=== PATIENT | female | born 1970 | race Two or more races ===

== ENCOUNTER 2017-08-31 22:18 | Emergency (ER) | payer MEDICAID ==
[~2017-08-31] VITALS: Ht 172.7 cm; Wt 122.5 kg
[~2017-08-31 22:18] MED LIST: ATOR10TA9 PO; METF500T27 PO; OMEP40CA6 PO; SUCR100P PO; TRAZ50TA18 PO; ZOLP-413 PO
[2017-08-31] MEDS ORDERED: SODIUM CHLORIDE 0.9% 1,000ML IVBOLUS ONE (23:30)
[2017-08-31] MEDS ORDERED: SODIUM CHLORIDE FLUSH 10ML SYR IVF ONE (23:30)
[2017-08-31] MEDS ORDERED: KETOROLAC 30 MG/1 ML IVPush ONE (23:30)
[2017-08-31] MEDS ORDERED: ONDANSETRON 2MG/ML, 2ML IVPush ONE (23:30)
[2017-08-31] MEDS ORDERED: MORPHINE SULFATE 4 MG/ML, 1ML IVPush PRN (23:30)
[2017-08-31] MEDS ORDERED: MORPHINE SULFATE 4 MG/ML, 1ML ONE (23:36)
[2017-08-31] MEDS ORDERED: KETOROLAC 30 MG/1 ML ONE (23:36)
[2017-08-31] MEDS ORDERED: ONDANSETRON 2MG/ML, 2ML ONE (23:37)
[2017-08-31 23:48] LABS: BASOPHILS # (AUTO) 0.07 x10^3/uL (0-0.1); BASOPHILS % (AUTO) 1 % (0-1); EOSINOPHILS # (AUTO) 0.22 x10^3/uL (0-0.4); EOSINOPHILS % (AUTO) 2 % (1-7); LYMPHOCYTES # (AUTO) 3.44 x10^3/uL (1-3.4); LYMPHOCYTES % (AUTO) 29 % (22-44); MD NO; MEAN CORPUSCULAR HEMOGLOBIN 28.5 pg (27.0-34.8); MEAN CORPUSCULAR HGB CONC 33.4 g/dL (32.4-35.8); MEAN CORPUSCULAR VOLUME 85.2 fL (80-100); MONOCYTES # (AUTO) 0.66 x10^3/uL (0.2-0.8); MONOCYTES % (AUTO) 6 % (2-9); NEUTROPHILS # (AUTO) 7.43 x10^3/uL (1.8-6.8); NEUTROPHILS % (AUTO) 63 % (42-75); PLATELET COUNT 292 x10^3/uL (130-400); RED BLOOD COUNT 5.14 x10^6/uL (3.82-5.3); RED CELL DISTRIBUTION WIDTH 15.1 % (9.6-15.2)
[2017-08-31 23:56] LABS: ALANINE AMINOTRANSFERASE 26 U/L (12-78); ALBUMIN 3.4 g/dL (3.4-5.0); ANION GAP 10 mmol/L (5-15); CALCIUM 8.4 mg/dL (8.5-10.1); CHLORIDE 105 mmol/L (98-107); CREATININE 0.88 mg/dL (0.55-1.02)
[2017-09-01 00:01] LABS: ALKALINE PHOSPHATASE 79 U/L (45-117); BILIRUBIN,TOTAL 0.2 mg/dL (0.2-1.0); TOTAL PROTEIN 7.5 g/dL (6.4-8.2); TROPONIN I < 0.015 ng/mL (0.000-0.045)
[2017-09-01] MEDS ORDERED: MORPHINE SULFATE 4 MG/ML, 1ML ONE (03:38)
[2017-09-01 03:48] VITALS: BP 112/70
[2017-09-01 03:49] LABS: TROPONIN I < 0.015 ng/mL (0.000-0.045)
[2017-09-01] MEDS ORDERED: HYDROcodone/APAP 5/325 TABLET PO ONE (04:30)
[2017-09-01] MEDS ORDERED: HYDROcodone/APAP 5/325 TABLET ONE (04:41)
== END 2017-09-01 04:48 | disposition home or self-care (01) ==
LOC: ED 09-01 00:04
DX: R07.2 Precordial pain (principal); E11.9 Type 2 diabetes mellitus without complications; E66.9 Obesity, unspecified; Z87.891 Personal history of nicotine dependence; Z90.49 Acquired absence of other specified parts of digestive tract
CPT/HCPCS: 36415; 71045; 80053; 84484; 85025; 85379; 93005; 96361; 96374; 96375; 99285; J1885; J2405; J7030

== ENCOUNTER 2017-11-07 08:29 | Emergency (ER) | payer MEDICAID ==
[~2017-11-07] VITALS: Ht 172.7 cm; Wt 128.0 kg
[~2017-11-07 08:29] MED LIST changes: +ALBU0.63 NEB; +ATOR-2 PO; +GLIP10TA13 PO; +LORA10TA75 PO
[2017-11-07] MEDS ORDERED: PROMETHAZINE 25 MG/ML, 1ML ONE (09:02)
[2017-11-07] MEDS ORDERED: PROMETHAZINE 25 MG/ML, 1ML IM ONE (09:30)
[2017-11-07 09:49] LABS: BASOPHILS # (AUTO) 0.01 x10^3/uL (0-0.1); BASOPHILS % (AUTO) 0 % (0-1); EOSINOPHILS # (AUTO) 0.18 x10^3/uL (0-0.4); EOSINOPHILS % (AUTO) 2 % (1-7); LYMPHOCYTES # (AUTO) 1.78 x10^3/uL (1-3.4); LYMPHOCYTES % (AUTO) 18 % (22-44); MD NO; MEAN CORPUSCULAR HEMOGLOBIN 28.3 pg (27.0-34.8); MEAN CORPUSCULAR HGB CONC 33.1 g/dL (32.4-35.8); MEAN CORPUSCULAR VOLUME 85.3 fL (80-100); MEAN PLATELET VOLUME 7.9 fL (7.4-10.4); MONOCYTES # (AUTO) 0.23 x10^3/uL (0.2-0.8); MONOCYTES % (AUTO) 2 % (2-9); NEUTROPHILS # (AUTO) 7.98 x10^3/uL (1.8-6.8); NEUTROPHILS % (AUTO) 78 % (42-75); PLATELET COUNT 325 x10^3/uL (130-400); RED BLOOD COUNT 5.24 x10^6/uL (3.82-5.3); RED CELL DISTRIBUTION WIDTH 14.9 % (9.6-15.2)
[2017-11-07 10:01] LABS: ALBUMIN 3.4 g/dL (3.4-5.0); ANION GAP 11 mmol/L (5-15); CALCIUM 9.3 mg/dL (8.5-10.1); CHLORIDE 104 mmol/L (98-107)
[2017-11-07 10:02] LABS: CREATININE 0.71 mg/dL (0.55-1.02)
[2017-11-07 10:45] VITALS: BP 126/72
== END 2017-11-07 10:47 | disposition home or self-care (01) ==
LOC: ED 09:20
DX: J00 Acute nasopharyngitis [common cold] (principal); G44.201 Tension-type headache, unspecified, intractable; E11.65 Type 2 diabetes mellitus with hyperglycemia; R11.2 Nausea with vomiting, unspecified
CPT/HCPCS: 36415; 70450; 71045; 80048; 82040; 85025; 96372; 99285; J2550

== ENCOUNTER 2017-12-23 18:02 | Inpatient (IN) | payer MEDICAID ==
[~2017-12-23] VITALS: Ht 172.7 cm; Wt 123.2 kg
[2017-12-23] MEDS ORDERED: SODIUM CHLORIDE FLUSH 10ML SYR IVF ONE (19:00)
[2017-12-23] MEDS ORDERED: ACETAMINOPHEN 500 MG TABLET PO ONE (19:00)
[2017-12-23] MEDS ORDERED: SODIUM CHLORIDE 0.9% 1,000ML IVBOLUS ONE (19:00)
[2017-12-23] MEDS ORDERED: ALBUTEROL/IPRATROPIUM 2.5MG/0.5MG, 3 ML NPPB ONE (19:00)
[2017-12-23] MEDS ORDERED: ALBUTEROL/IPRATROPIUM 2.5MG/0.5MG, 3 ML ONE (19:06)
[2017-12-23 19:29] LABS: BASOPHILS # (AUTO) 0.04 x10^3/uL (0-0.1); BASOPHILS % (AUTO) 0 % (0-1); EOSINOPHILS % (AUTO) 1 % (1-7); LYMPHOCYTES % (AUTO) 22 % (22-44); MD NO; MEAN CORPUSCULAR HEMOGLOBIN 28.4 pg (27.0-34.8); MEAN CORPUSCULAR HGB CONC 33.3 g/dL (32.4-35.8); MEAN CORPUSCULAR VOLUME 85.2 fL (80-100); MEAN PLATELET VOLUME 7.6 fL (7.4-10.4); MONOCYTES # (AUTO) 0.69 x10^3/uL (0.2-0.8); MONOCYTES % (AUTO) 7 % (2-9); NEUTROPHILS % (AUTO) 70 % (42-75); PLATELET COUNT 300 x10^3/uL (130-400); RED BLOOD COUNT 5.91 x10^6/uL (3.82-5.3); RED CELL DISTRIBUTION WIDTH 14.8 % (9.6-15.2)
[2017-12-23 19:40] LABS: ALBUMIN 3.7 g/dL (3.4-5.0); ANION GAP 13 mmol/L (5-15); CALCIUM 9.4 mg/dL (8.5-10.1); CHLORIDE 100 mmol/L (98-107); CREATININE 0.79 mg/dL (0.55-1.02)
[2017-12-23] MEDS ORDERED: ACETAMINOPHEN 500 MG TABLET ONE (19:40)
[2017-12-23] MEDS ORDERED: ONDANSETRON ODT 4 MG ONE (20:36)
[2017-12-23] MEDS ORDERED: ONDANSETRON ODT 4 MG PO ONE (21:00)
[2017-12-23] MEDS ORDERED: ZOLPIDEM 5MG TABLET PO PRN (22:00)
[2017-12-23] MEDS ORDERED: ONDANSETRON ODT 4 MG PO PRN (22:00)
[2017-12-23] MEDS ORDERED: ENALAPRILAT 1.25 MG/ML, 2ML IVPush PRN (22:00)
[2017-12-23 22:26] VITALS: BP 124/81
[2017-12-23] MEDS: HEPARIN 5,000 UNITS/ML, 1ML SQ SCH (22:45)
[2017-12-23] MEDS: ZOLPIDEM 5MG TABLET PO PRN (22:45)
[2017-12-23] MEDS ORDERED: GLUCAGON 1 MG IM PRN (23:00)
[2017-12-23] MEDS ORDERED: DEXTROSE 50%, 50ML SYRINGE IVPush PRN (23:00)
[2017-12-23] MEDS ORDERED: DEXTROSE 4 GM TAB.CHEW PO PRN (23:00)
[2017-12-23] MEDS ORDERED: INSULIN GLARGINE 100 UNITS/ML, PEN SQ-INSULIN SCH (23:00)
[2017-12-23] MEDS: ALBUTEROL/IPRATROPIUM 2.5MG/0.5MG, 3 ML NPPB SCH (23:25)
[2017-12-24] MEDS: INSULIN LISPRO 100 UNITS/ML, PEN SQ-INSULIN SCH ×5 (00:05→21:05)
[2017-12-24] MEDS: ALBUTEROL/IPRATROPIUM 2.5MG/0.5MG, 3 ML NPPB SCH ×6 (02:08→23:00)
[2017-12-24 02:14] VITALS: BP 130/77
[2017-12-24 05:03] LABS: BASOPHILS # (AUTO) 0.01 x10^3/uL (0-0.1); BASOPHILS % (AUTO) 0 % (0-1); EOSINOPHILS % (AUTO) 0 % (1-7); LYMPHOCYTES # (AUTO) 0.92 x10^3/uL (1-3.4); LYMPHOCYTES % (AUTO) 10 % (22-44); MD NO; MEAN CORPUSCULAR HEMOGLOBIN 28.4 pg (27.0-34.8); MEAN CORPUSCULAR HGB CONC 33.1 g/dL (32.4-35.8); MEAN CORPUSCULAR VOLUME 85.8 fL (80-100); MEAN PLATELET VOLUME 7.8 fL (7.4-10.4); MONOCYTES # (AUTO) 0.27 x10^3/uL (0.2-0.8); MONOCYTES % (AUTO) 3 % (2-9); NEUTROPHILS # (AUTO) 7.62 x10^3/uL (1.8-6.8); NEUTROPHILS % (AUTO) 86 % (42-75); PLATELET COUNT 315 x10^3/uL (130-400); RED CELL DISTRIBUTION WIDTH 14.8 % (9.6-15.2)
[2017-12-24] MEDS ORDERED: INSULIN GLARGINE 100 UNITS/ML, PEN SQ-INSULIN SCH ×2 (06:30→21:00)
[2017-12-24 06:45] VITALS: BP 127/82
[2017-12-24] MEDS: SODIUM CHLORIDE FLUSH 10ML SYR IVF SCH ×2 (08:57→21:04)
[2017-12-24] MEDS: LORATADINE 10 MG TABLET PO SCH (08:57)
[2017-12-24] MEDS: HEPARIN 5,000 UNITS/ML, 1ML SQ SCH ×2 (08:57→17:37)
[2017-12-24] MEDS ORDERED: AZITHROMYCIN 500 MG TABLET PO ONE (09:00)
[2017-12-24] MEDS: OMEPRAZOLE 20 MG CAPSULE.DR PO SCH (09:03)
[2017-12-24] MEDS ORDERED: GUAIFENESIN 100 MG/5 ML, 5ML UDC ONE (10:30)
[2017-12-24] MEDS: GUAIFENESIN 100 MG/5 ML, 5ML UDC PO PRN ×2 (10:33→15:44)
[2017-12-24 13:09] VITALS: BP 114/76
[2017-12-24 19:41] VITALS: BP 123/81
[2017-12-24] MEDS ORDERED: ATORVASTATIN 80 MG TABLET PO SCH (21:00)
[2017-12-24] MEDS ORDERED: ACETAMINOPHEN 325 MG TABLET PO PRN (21:00)
[2017-12-24] MEDS: ATORVASTATIN 10 MG TABLET PO SCH (21:03)
[2017-12-24] MEDS: ZOLPIDEM 5MG TABLET PO PRN (21:57)
[2017-12-24] MEDS ORDERED: INSULIN LISPRO 100 UNITS/ML, PEN SQ-INSULIN SCH ×2 (23:13)
[2017-12-25] MEDS: HEPARIN 5,000 UNITS/ML, 1ML SQ SCH ×3 (01:38→16:44)
[2017-12-25 02:09] VITALS: BP 107/71
[2017-12-25] MEDS ORDERED: INSULIN LISPRO 100 UNITS/ML, PEN SQ-INSULIN SCH (07:00)
[2017-12-25 07:47] VITALS: BP 100/71
[2017-12-25] MEDS: AZITHROMYCIN 250 MG TABLET PO SCH (08:03)
[2017-12-25] MEDS: LORATADINE 10 MG TABLET PO SCH (08:04)
[2017-12-25] MEDS: SODIUM CHLORIDE FLUSH 10ML SYR IVF SCH ×2 (08:05→20:54)
[2017-12-25] MEDS: OMEPRAZOLE 20 MG CAPSULE.DR PO SCH (08:10)
[2017-12-25] MEDS: ALBUTEROL/IPRATROPIUM 2.5MG/0.5MG, 3 ML NPPB SCH ×3 (10:15→20:59)
[2017-12-25] MEDS: GUAIFENESIN 100 MG/5 ML, 5ML UDC PO PRN (11:37)
[2017-12-25 12:30] VITALS: BP 139/82
[2017-12-25] MEDS: INSULIN LISPRO 100 UNITS/ML, PEN SQ-INSULIN SCH ×2 (15:21→20:53)
[2017-12-25] MEDS ORDERED: INSULIN LISPRO 100 UNITS/ML, PEN SQ-INSULIN ONE (17:00)
[2017-12-25] MEDS ORDERED: BENZONATATE 100 MG CAPSULE PO PRN (20:00)
[2017-12-25] MEDS: ATORVASTATIN 10 MG TABLET PO SCH (20:53)
[2017-12-25] MEDS ORDERED: INSULIN GLARGINE 100 UNITS/ML, PEN SQ-INSULIN SCH (21:00)
[2017-12-25 21:02] VITALS: BP 124/84
[2017-12-25] MEDS: ZOLPIDEM 5MG TABLET PO PRN (23:19)
[2017-12-25] MEDS: DEXTROMETHORPHAN 30 MG/5 ML ORAL SOL PO PRN (23:19)
[2017-12-26] MEDS: HEPARIN 5,000 UNITS/ML, 1ML SQ SCH ×3 (01:27→17:00)
[2017-12-26] MEDS: INSULIN LISPRO 100 UNITS/ML, PEN SQ-INSULIN SCH ×3 (01:33→14:33)
[2017-12-26 02:51] VITALS: BP 104/73
[2017-12-26 06:56] VITALS: BP 112/80
[2017-12-26] MEDS: SODIUM CHLORIDE FLUSH 10ML SYR IVF SCH (08:51)
[2017-12-26] MEDS: AZITHROMYCIN 250 MG TABLET PO SCH (08:53)
[2017-12-26] MEDS: LORATADINE 10 MG TABLET PO SCH (08:54)
[2017-12-26] MEDS ORDERED: OMEPRAZOLE 20 MG CAPSULE.DR PO SCH (09:00)
[2017-12-26] MEDS: DEXTROMETHORPHAN 30 MG/5 ML ORAL SOL PO PRN (10:00)
[2017-12-26] MEDS: ALBUTEROL/IPRATROPIUM 2.5MG/0.5MG, 3 ML NPPB SCH ×2 (12:13→15:28)
[2017-12-26] MEDS ORDERED: PRED20TA PO (13:57)
[2017-12-26] MEDS ORDERED: BENZ-17 PO (13:57)
[2017-12-26] MEDS ORDERED: INSU100I13 SQ-INSULIN (13:57)
[2017-12-26] MEDS ORDERED: INSU100I11 SQ-INSULIN (13:57)
[2017-12-26] MEDS ORDERED: AZIT250T89 PO (13:57)
[2017-12-26 14:26] VITALS: BP 124/78
[2017-12-26] MEDS ORDERED: INSULIN LISPRO 100 UNITS/ML, PEN SQ-INSULIN ONE (16:00)
== END 2017-12-26 18:30 | disposition home or self-care (01) | DRG 189 ==
LOC: ED 18:35 → EDIP 21:28 → 4WST 22:32
PROVIDERS: ADMIT Family Medicine; ATTEND Family Medicine
DX: J96.01 Acute respiratory failure with hypoxia (principal); E11.65 Type 2 diabetes mellitus with hyperglycemia; Z68.41 Body mass index [BMI] 40.0-44.9, adult; E66.9 Obesity, unspecified; F12.90 Cannabis use, unspecified, uncomplicated; G47.00 Insomnia, unspecified; G47.33 Obstructive sleep apnea (adult) (pediatric); I10 Essential (primary) hypertension; J45.909 Unspecified asthma, uncomplicated; K21.9 Gastro-esophageal reflux disease without esophagitis; M54.9 Dorsalgia, unspecified; G57.50 Tarsal tunnel syndrome, unspecified lower limb; D72.829 Elevated white blood cell count, unspecified; E78.5 Hyperlipidemia, unspecified; R91.1 Solitary pulmonary nodule; Z79.899 Other long term (current) drug therapy; Z87.891 Personal history of nicotine dependence; Z90.710 Acquired absence of both cervix and uterus; Z91.19 Patient's noncompliance with other medical treatment and regimen; Z90.49 Acquired absence of other specified parts of digestive tract; Z90.721 Acquired absence of ovaries, unilateral
CPT/HCPCS: 36415; 71045; 71046; 80048; 82040; 82103; 82947; 82962; 83605; 85025; 93005; 94640; J1644; J7620; Q0162; J1815; J7030; J7512

== ENCOUNTER 2018-08-14 | Emergency (ER) | payer MEDICAID ==
[~2018-08-14] VITALS: Ht 172.7 cm; Wt 111.0 kg
[~2018-08-14] MED LIST changes: +AZIT250T89 PO; +BENZ-17 PO; +INSU100I11 SQ-INSULIN; +INSU100I13 SQ-INSULIN; +PRED20TA PO; -TRAZ50TA18 PO; +TRAZ50TA66 PO
--- NOTE | 2018-08-14 01:17 | NUR ---
LINH RN: PT REMAINS IN LOBBY AWAITING ROOM ASSIGNMENT. PER ERP, C-SPINE PRECAUTIONS CLEARED. C-COLLAR REMOVED AT THIS TIME.
[2018-08-14 01:26] LABS: BASOPHILS # (AUTO) 0.07 x10^3/uL (0-0.1); BASOPHILS % (AUTO) 1 % (0-1); EOSINOPHILS # (AUTO) 0.34 x10^3/uL (0-0.4); EOSINOPHILS % (AUTO) 3 % (1-7); LYMPHOCYTES % (AUTO) 23 % (22-44); MD NO; MEAN CORPUSCULAR HEMOGLOBIN 28.9 pg (27.0-34.8); MEAN CORPUSCULAR HGB CONC 33.1 g/dL (32.4-35.8); MEAN CORPUSCULAR VOLUME 87.4 fL (80-100); MEAN PLATELET VOLUME 7.8 fL (7.4-10.4); MONOCYTES # (AUTO) 0.63 x10^3/uL (0.2-0.8); MONOCYTES % (AUTO) 6 % (2-9); NEUTROPHILS # (AUTO) 7.33 x10^3/uL (1.8-6.8); NEUTROPHILS % (AUTO) 67 % (42-75); PLATELET COUNT 328 x10^3/uL (130-400); RED BLOOD COUNT 5.41 x10^6/uL (3.82-5.3); RED CELL DISTRIBUTION WIDTH 15.2 % (9.6-15.2)
[2018-08-14 01:34] LABS: ANION GAP 7 mmol/L (5-15); CALCIUM 8.6 mg/dL (8.5-10.1); CHLORIDE 107 mmol/L (98-107); CREATININE 0.73 mg/dL (0.55-1.02)
--- NOTE | 2018-08-14 01:46 | NUR ---
PT TO RM FROM [facility]. ERP AT BEDSIDE TO LIBBY. PT STATES SHE HAD A SYNCOPAL EPISODE TONIGHT THAT LASTED PER 3-5 MINUTES PER DAUGHTER. PT A&O X4 WITH NO ACUTE NEURO CHANGES NOTED AT THIS TIME. PT C/O DIZZY PRIOR TO EPISODE. PT ALSO PRESENTS WITH COUGH X3 DAYS.
[2018-08-14 01:54] VITALS: BP 129/77
[2018-08-14] MEDS ORDERED: BENZONATATE 100 MG CAPSULE ONE ×2 (02:02→02:04)
[2018-08-14] MEDS ORDERED: ONDANSETRON ODT 4 MG ONE (02:02)
--- NOTE | 2018-08-14 02:08 | NUR ---
Pt medicated per OCT for N/V and cough. 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 Pt had been drinking soda upon RN arrival into room with no s/s of vomiting. Pt continues to c/o dizziness. ERP aware. Call light in reach.
[2018-08-14] MEDS ORDERED: BENZONATATE 100 MG CAPSULE PO ONE (02:30)
[2018-08-14] MEDS ORDERED: ONDANSETRON ODT 4 MG PO ONE (02:30)
--- NOTE | 2018-08-14 02:30 | NUR ---
ERP at bedside to recheck.
== END 2018-08-14 02:57 | disposition home or self-care (01) ==
LOC: ED 02:47
DX: R55 Syncope and collapse (principal); R05 Cough; M54.2 Cervicalgia; R11.0 Nausea; E11.9 Type 2 diabetes mellitus without complications; J45.909 Unspecified asthma, uncomplicated; Z90.89 Acquired absence of other organs; Z90.710 Acquired absence of both cervix and uterus
CPT/HCPCS: 36415; 70450; 72125; 80048; 82962; 84703; 85025; 93005; 99284; Q0162

== ENCOUNTER 2018-08-20 21:42 | Inpatient (IN) | payer MEDICAID ==
[~2018-08-20] VITALS: Ht 162.6 cm; Wt 117.2 kg
[2018-08-20] MEDS ORDERED: SODIUM CHLORIDE FLUSH 10ML SYR IVF ONE (22:00)
[2018-08-20] MEDS ORDERED: ALBUTEROL/IPRATROPIUM 2.5MG/0.5MG, 3 ML NPPB SCH (22:00)
[2018-08-20] MEDS ORDERED: methylPREDNISolone SOD SUCC 125 MG/2 ML IVP ONE (22:00)
--- NOTE | 2018-08-20 22:00 | NUR ---
TP RN: RT PAGED
[2018-08-20 22:10] LABS: BASOPHILS # (AUTO) 0.08 x10^3/uL (0-0.1); BASOPHILS % (AUTO) 1 % (0-1); EOSINOPHILS # (AUTO) 0.29 x10^3/uL (0-0.4); EOSINOPHILS % (AUTO) 3 % (1-7); LYMPHOCYTES # (AUTO) 3.21 x10^3/uL (1-3.4); LYMPHOCYTES % (AUTO) 28 % (22-44); MD NO; MEAN CORPUSCULAR HGB CONC 33.2 g/dL (32.4-35.8); MEAN CORPUSCULAR VOLUME 87.3 fL (80-100); MEAN PLATELET VOLUME 7.8 fL (7.4-10.4); MONOCYTES # (AUTO) 0.58 x10^3/uL (0.2-0.8); MONOCYTES % (AUTO) 5 % (2-9); NEUTROPHILS # (AUTO) 7.42 x10^3/uL (1.8-6.8); NEUTROPHILS % (AUTO) 64 % (42-75); PLATELET COUNT 353 x10^3/uL (130-400); RED BLOOD COUNT 5.51 x10^6/uL (3.82-5.3); RED CELL DISTRIBUTION WIDTH 15.3 % (9.6-15.2)
[2018-08-20] MEDS ORDERED: ALBUTEROL/IPRATROPIUM 2.5MG/0.5MG, 3 ML ONE ×2 (22:12→22:49)
--- NOTE | 2018-08-20 22:13 | NUR ---
PT ARRIVES TO ED VIA EMS WITH C/O CHEST PAIN, SOB AND SEVERE COUGH. 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 PT REPORTS THAT THE CHEST PAIN STARTED IN EPIGASTRIC AREA WITH NO RADIATION. PT ON ARRIVAL IS FOUND TO BE HYPOXIC WITH WHEEZING LUNG SOUND THROUGHOUT LUNGS. PT IS ABLE TO SPEAK IN FULL SENTANCES BUT IS EASILY WINDED BY THAT. PT HAS LOOSE NON PRODUCTIVE COUGH. PT IS NOT DIAPHROATIC AND REPORTS NO N/V/D AT THIS TIME. PT DOES REPORT HAVING A COLD FOR ABOUT TWO WEEKS. PTS RESPIRATIONS ARE EQUAL AND RAPIN WITH NO TRACAHEAL TUGGING. PT CONNECTED TO ALL MONITORS AND PIV PLACED. PT HAS CALL LIGHT IN REACH AND FALL PREVENTION TEACHING REVIEWED WELL. LUIS TO BEDSIDE FOR IMMEDIATE EVAL. AWAITING FURTHER ORDERS.
--- NOTE | 2018-08-20 22:14 | NUR ---
RT TO BEDSIDE
[2018-08-20] MEDS ORDERED: methylPREDNISolone SOD SUCC 125 MG/2 ML ONE (22:19)
[2018-08-20 22:20] LABS: ALANINE AMINOTRANSFERASE 25 U/L (12-78); ALBUMIN 3.7 g/dL (3.4-5.0); ANION GAP 7 mmol/L (5-15); CALCIUM 8.8 mg/dL (8.5-10.1); CHLORIDE 107 mmol/L (98-107); CREATININE 0.66 mg/dL (0.55-1.02)
[2018-08-20 22:25] LABS: ALKALINE PHOSPHATASE 79 U/L (45-117); BILIRUBIN,TOTAL 0.2 mg/dL (0.2-1.0); TOTAL PROTEIN 7.9 g/dL (6.4-8.2); TROPONIN I < 0.015 ng/mL (0.000-0.045)
[2018-08-20] MEDS ORDERED: PLEASE ENTER HEIGHT AND WEIGHT MC SCH (22:30)
--- NOTE | 2018-08-20 23:08 | NUR ---
REPORT TO IVAN MONTEJO
[2018-08-20 23:30] VITALS: BP 124/79
[2018-08-20] MEDS ORDERED: PROMETHAZINE 25 MG/ML, 1ML IM PRN (23:30)
[2018-08-20] MEDS ORDERED: ACETAMINOPHEN 325 MG TABLET PO PRN (23:30)
[2018-08-20] MEDS ORDERED: ONDANSETRON ODT 4 MG PO PRN (23:30)
[2018-08-20] MEDS ORDERED: LABETALOL 5MG/ML, 20ML IVPush PRN (23:30)
[2018-08-20] MEDS ORDERED: ONDANSETRON 2MG/ML, 2ML IVPush PRN (23:30)
[2018-08-20] MEDS ORDERED: LACTATED RINGERS 1,000 ML IV SCH (23:30)
[2018-08-21] MEDS ORDERED: ATORVASTATIN 20 MG TABLET PO SCH
[2018-08-21] MEDS ORDERED: DEXTROSE 4 GM TAB.CHEW PO PRN
[2018-08-21] MEDS ORDERED: DEXTROSE 50%, 50ML SYRINGE IVPush PRN
[2018-08-21] MEDS ORDERED: GLUCAGON 1 MG IM PRN
[2018-08-21 00:16] LABS: CHOL/HDL RATIO 3.4; LDL/HDL RATIO 2.1 (0.5-3.0)
[2018-08-21] MEDS: ENOXAPARIN 40 MG/0.4 ML SQ SCH ×2 (00:42→23:59)
[2018-08-21] MEDS: GUAIFENESIN/DM 200-20MG, 10ML UDC PO PRN ×2 (00:42→22:34)
[2018-08-21] MEDS: IBUPROFEN 600 MG TABLET PO PRN ×2 (00:43→16:03)
[2018-08-21] MEDS: NICOTINE 14MG/24 HR PATCH.TD24 TD SCH ×2 (00:43→23:59)
[2018-08-21] MEDS: INSULIN LISPRO 100 UNITS/ML, PEN SQ-INSULIN SCH ×5 (00:49→20:17)
[2018-08-21] MEDS ORDERED: TRAZODONE 150MG TABLET ONE (00:56)
[2018-08-21] MEDS ORDERED: TRAZODONE 150MG TABLET PO PRN (01:00)
[2018-08-21] MEDS ORDERED: ALBUTEROL SULFATE 2.5 MG/3 ML NPPB PRN (01:00)
[2018-08-21] MEDS ORDERED: ALBUTEROL/IPRATROPIUM 2.5MG/0.5MG, 3 ML NPPB SCH (03:00)
[2018-08-21 03:10] VITALS: BP 112/66
[2018-08-21] MEDS ORDERED: TRAZODONE 50MG TABLET PO PRN (05:00)
[2018-08-21 05:45] LABS: BASOPHILS # (AUTO) 0.02 x10^3/uL (0-0.1); BASOPHILS % (AUTO) 0 % (0-1); EOSINOPHILS # (AUTO) 0.01 x10^3/uL (0-0.4); EOSINOPHILS % (AUTO) 0 % (1-7); LYMPHOCYTES # (AUTO) 0.96 x10^3/uL (1-3.4); LYMPHOCYTES % (AUTO) 8 % (22-44); MD NO; MEAN CORPUSCULAR HEMOGLOBIN 29.1 pg (27.0-34.8); MEAN CORPUSCULAR HGB CONC 33.2 g/dL (32.4-35.8); MEAN CORPUSCULAR VOLUME 87.6 fL (80-100); MONOCYTES # (AUTO) 0.06 x10^3/uL (0.2-0.8); MONOCYTES % (AUTO) 1 % (2-9); NEUTROPHILS # (AUTO) 10.44 x10^3/uL (1.8-6.8); NEUTROPHILS % (AUTO) 91 % (42-75); PLATELET COUNT 306 x10^3/uL (130-400); RED CELL DISTRIBUTION WIDTH 15.1 % (9.6-15.2)
[2018-08-21 05:57] LABS: ALBUMIN 3.6 g/dL (3.4-5.0); ANION GAP 6 mmol/L (5-15); CALCIUM 8.8 mg/dL (8.5-10.1); CHLORIDE 106 mmol/L (98-107)
[2018-08-21 06:01] LABS: ALANINE AMINOTRANSFERASE 25 U/L (12-78); ALKALINE PHOSPHATASE 81 U/L (45-117); BILIRUBIN,TOTAL 0.3 mg/dL (0.2-1.0); CREATININE 0.89 mg/dL (0.55-1.02); TOTAL PROTEIN 7.7 g/dL (6.4-8.2)
[2018-08-21 06:05] LABS: TROPONIN I < 0.015 ng/mL (0.000-0.045)
[2018-08-21 06:06] LABS: CHOL/HDL RATIO 3.2; LDL/HDL RATIO 1.8 (0.5-3.0)
[2018-08-21 06:09] LABS: HEMOGLOBIN A1C 7.6 % (4.2-6.3)
[2018-08-21] MEDS: ALBUTEROL SULFATE 2.5 MG/3 ML NPPB SCH ×4 (07:00→20:00)
[2018-08-21 08:32] VITALS: BP 115/75
[2018-08-21] MEDS: SENNA/DOCUSATE TABLET PO SCH (09:00)
[2018-08-21] MEDS: LOSARTAN 25MG TABLET PO SCH (09:24)
[2018-08-21] MEDS: BENZONATATE 100 MG CAPSULE PO SCH ×3 (09:24→20:16)
[2018-08-21] MEDS: SODIUM CHLORIDE FLUSH 10ML SYR IVF SCH ×2 (09:25→20:17)
[2018-08-21 14:44] VITALS: BP 119/78
[2018-08-21 15:36] VITALS: BP 106/66
[2018-08-21] MEDS: OMEPRAZOLE 20 MG CAPSULE.DR PO SCH (17:54)
[2018-08-21 20:31] VITALS: BP 113/73
[2018-08-21] MEDS ORDERED: ATORVASTATIN 40 MG TABLET PO SCH (21:00)
[2018-08-22 01:11] VITALS: BP 103/66
[2018-08-22] MEDS ORDERED: OMEPRAZOLE 20 MG CAPSULE.DR PO SCH (06:00)
[2018-08-22 06:27] LABS: BASOPHILS # (AUTO) 0.18 x10^3/uL (0-0.1); BASOPHILS % (AUTO) 1 % (0-1); EOSINOPHILS % (AUTO) 1 % (1-7); LYMPHOCYTES # (AUTO) 3.56 x10^3/uL (1-3.4); LYMPHOCYTES % (AUTO) 25 % (22-44); MD NO; MEAN CORPUSCULAR HEMOGLOBIN 29.2 pg (27.0-34.8); MEAN CORPUSCULAR HGB CONC 33.2 g/dL (32.4-35.8); MEAN CORPUSCULAR VOLUME 87.8 fL (80-100); MEAN PLATELET VOLUME 8.3 fL (7.4-10.4); MONOCYTES # (AUTO) 0.78 x10^3/uL (0.2-0.8); MONOCYTES % (AUTO) 6 % (2-9); NEUTROPHILS % (AUTO) 67 % (42-75); PLATELET COUNT 274 x10^3/uL (130-400)
[2018-08-22] MEDS: ALBUTEROL SULFATE 2.5 MG/3 ML NPPB SCH ×3 (07:00→20:00)
[2018-08-22 07:46] VITALS: BP 106/69
[2018-08-22] MEDS: INSULIN LISPRO 100 UNITS/ML, PEN SQ-INSULIN SCH ×3 (08:48→15:34)
[2018-08-22] MEDS: SODIUM CHLORIDE FLUSH 10ML SYR IVF SCH (09:00)
[2018-08-22] MEDS: SENNA/DOCUSATE TABLET PO SCH (09:00)
[2018-08-22] MEDS ORDERED: REGADENOSON 0.4 MG/5 ML SYRINGE ONE (09:27)
[2018-08-22] MEDS: LOSARTAN 25MG TABLET PO SCH (11:02)
[2018-08-22] MEDS: BENZONATATE 100 MG CAPSULE PO SCH ×2 (11:02→15:34)
[2018-08-22 13:03] VITALS: BP 114/78
[2018-08-22] MEDS: OMEPRAZOLE 20 MG CAPSULE.DR PO SCH (13:39)
[2018-08-22 19:43] VITALS: BP 107/70
== END 2018-08-22 20:19 | disposition home or self-care (01) | DRG 69 ==
LOC: ED 21:49 → EDIP 23:21 → 4EST 08-21 00:29
PROVIDERS: ADMIT Family Medicine; ATTEND Family Medicine
DX: G45.9 Transient cerebral ischemic attack, unspecified (principal); J96.01 Acute respiratory failure with hypoxia; J45.42 Moderate persistent asthma with status asthmaticus; F19.20 Other psychoactive substance dependence, uncomplicated; R47.01 Aphasia; E11.9 Type 2 diabetes mellitus without complications; F17.210 Nicotine dependence, cigarettes, uncomplicated; G47.33 Obstructive sleep apnea (adult) (pediatric); I10 Essential (primary) hypertension; I25.10 Atherosclerotic heart disease of native coronary artery without angina pectoris; Z88.6 Allergy status to analgesic agent; Z90.710 Acquired absence of both cervix and uterus; Z98.51 Tubal ligation status; Z90.49 Acquired absence of other specified parts of digestive tract
CPT/HCPCS: 36415; 99291; J7613; J7620; 70450; 71045; 71046; 78452; 80053; 80061; 82962; 83036; 83880; 84484; 85025; 85379; 93005; 93017; 93306; 93880; 94640; G0378; J1650; J2785; Q0162; A9502; C9898; J1815; J2930; J7120; J7512

== ENCOUNTER 2018-10-17 14:24 | Emergency (ER) | payer MEDICAID ==
[~2018-10-17] VITALS: Ht 172.7 cm; Wt 119.7 kg
[~2018-10-17 14:24] MED LIST changes: +EMPA1TAB9 PO; +LOSARTAN PO; +MULT-658 PO
[2018-10-17] MEDS ORDERED: SODIUM CHLORIDE FLUSH 10ML SYR IVF ONE (14:30)
--- NOTE | 2018-10-17 14:43 | NUR ---
pt administered 6 mg of adenosine at 1436. positive rhythm change. 300 of ns admin prior to arrival with additional 600 admin here.
[2018-10-17 14:48] LABS: BASOPHILS # (AUTO) 0.07 x10^3/uL (0-0.1); BASOPHILS % (AUTO) 1 % (0-1); EOSINOPHILS # (AUTO) 0.21 x10^3/uL (0-0.4); EOSINOPHILS % (AUTO) 1 % (1-7); LYMPHOCYTES % (AUTO) 25 % (22-44); MD NO; MEAN CORPUSCULAR HEMOGLOBIN 28.7 pg (27.0-34.8); MEAN CORPUSCULAR VOLUME 86.8 fL (80-100); MEAN PLATELET VOLUME 8.3 fL (7.4-10.4); MONOCYTES # (AUTO) 0.71 x10^3/uL (0.2-0.8); MONOCYTES % (AUTO) 5 % (2-9); NEUTROPHILS # (AUTO) 10.13 x10^3/uL (1.8-6.8); NEUTROPHILS % (AUTO) 68 % (42-75); PLATELET COUNT 419 x10^3/uL (130-400); RED BLOOD COUNT 5.78 x10^6/uL (3.82-5.3); RED CELL DISTRIBUTION WIDTH 15.1 % (9.6-15.2)
[2018-10-17 15:12] LABS: ANION GAP 11 mmol/L (5-15); CALCIUM 9.3 mg/dL (8.5-10.1); CHLORIDE 105 mmol/L (98-107)
[2018-10-17 15:19] LABS: ALANINE AMINOTRANSFERASE 30 U/L (12-78); ALKALINE PHOSPHATASE 86 U/L (45-117); BILIRUBIN,TOTAL 0.4 mg/dL (0.2-1.0); CREATININE 0.85 mg/dL (0.55-1.02); T4 (THYROXINE) 12.5 mcg/dL (4.8-13.9); TOTAL PROTEIN 8.5 g/dL (6.4-8.2); TROPONIN I < 0.015 ng/mL (0.000-0.045)
[2018-10-17 15:54] VITALS: BP 101/66
[2018-10-17] MEDS ORDERED: ADENOSINE 6 MG/2 ML IVPush ONE (16:00)
== END 2018-10-17 16:33 | disposition home or self-care (01) ==
LOC: ED 16:10
DX: I47.1 Supraventricular tachycardia (principal)
CPT/HCPCS: 36415; 71045; 80053; 83880; 84436; 84443; 84484; 85025; 93005; 96374; 99284; J0153

== ENCOUNTER 2018-11-06 11:54 | Emergency (ER) | payer MEDICAID ==
[~2018-11-06] VITALS: Ht 172.7 cm; Wt 116.5 kg
[2018-11-06] MEDS ORDERED: DIPHENHYDRAMINE 50 MG/ML, 1ML IVPush ONE (12:30)
[2018-11-06] MEDS ORDERED: SODIUM CHLORIDE FLUSH 10ML SYR IVF ONE (12:30)
[2018-11-06] MEDS ORDERED: METOCLOPRAMIDE 5 MG/ML, 2ML IVPush ONE (12:30)
[2018-11-06] MEDS ORDERED: ASPIRIN 81 MG TABLET CHEW PO ONE (12:30)
[2018-11-06] MEDS ORDERED: KETOROLAC 30 MG/1 ML IVPush ONE (12:30)
[2018-11-06 12:42] LABS: BASOPHILS # (AUTO) 0.04 x10^3/uL (0-0.1); BASOPHILS % (AUTO) 1 % (0-1); EOSINOPHILS # (AUTO) 0.08 x10^3/uL (0-0.4); EOSINOPHILS % (AUTO) 2 % (1-7); LYMPHOCYTES # (AUTO) 1.26 x10^3/uL (1-3.4); LYMPHOCYTES % (AUTO) 22 % (22-44); MD NO; MEAN CORPUSCULAR HEMOGLOBIN 28.4 pg (27.0-34.8); MEAN CORPUSCULAR HGB CONC 32.8 g/dL (32.4-35.8); MEAN CORPUSCULAR VOLUME 86.5 fL (80-100); MEAN PLATELET VOLUME 7.6 fL (7.4-10.4); MONOCYTES # (AUTO) 0.41 x10^3/uL (0.2-0.8); MONOCYTES % (AUTO) 7 % (2-9); NEUTROPHILS # (AUTO) 3.91 x10^3/uL (1.8-6.8); NEUTROPHILS % (AUTO) 69 % (42-75); PLATELET COUNT 251 x10^3/uL (130-400); RED BLOOD COUNT 5.23 x10^6/uL (3.82-5.3); RED CELL DISTRIBUTION WIDTH 15.1 % (9.6-15.2)
[2018-11-06 12:55] LABS: ALBUMIN 3.9 g/dL (3.4-5.0); ANION GAP 7 mmol/L (5-15); CALCIUM 8.7 mg/dL (8.5-10.1); CHLORIDE 110 mmol/L (98-107)
[2018-11-06 13:00] LABS: CREATININE 0.63 mg/dL (0.55-1.02); TROPONIN I < 0.015 ng/mL (0.000-0.045)
[2018-11-06] MEDS ORDERED: DIPHENHYDRAMINE 50 MG/ML, 1ML ONE (13:00)
[2018-11-06] MEDS ORDERED: KETOROLAC 30 MG/1 ML ONE (13:01)
[2018-11-06] MEDS ORDERED: ASPIRIN 81 MG TABLET CHEW ONE (13:01)
[2018-11-06] MEDS ORDERED: METOCLOPRAMIDE 5 MG/ML, 2ML ONE (13:01)
--- NOTE | 2018-11-06 13:27 | NUR ---
TASK RN: PT AMBULATORY TO ROOM 22 W/ C/O L SIDED CP STARTED 4 DAYS AGO AND PT ALSO HAS C/O MIGRAINE ZHAO STARTED 1 HR AGO. [facility] MONITORS APPLIED. MEDICATED PER OCT.
[2018-11-06 13:55] VITALS: BP 115/59
== END 2018-11-06 13:58 | disposition home or self-care (01) ==
LOC: ED 12:46
DX: I10 Essential (primary) hypertension (principal); R42 Dizziness and giddiness; M79.602 Pain in left arm; J45.909 Unspecified asthma, uncomplicated; F17.210 Nicotine dependence, cigarettes, uncomplicated; E11.9 Type 2 diabetes mellitus without complications; Z88.8 Allergy status to other drugs, medicaments and biological substances
CPT/HCPCS: 36415; 71045; 80048; 82040; 83880; 84484; 85025; 93005; 96374; 96375; 99284; J1200; J1885; J2765

== ENCOUNTER 2019-03-12 17:07 | Emergency (ER) | payer MEDICAID ==
[~2019-03-12] VITALS: Ht 172.7 cm; Wt 109.3 kg
[2019-03-12 19:33] VITALS: BP 144/75
== END 2019-03-12 19:35 | disposition home or self-care (01) ==
LOC: ED 19:05
DX: G43.109 Migraine with aura, not intractable, without status migrainosus (principal); R53.1 Weakness; I10 Essential (primary) hypertension; E11.9 Type 2 diabetes mellitus without complications; J45.909 Unspecified asthma, uncomplicated; Z86.73 Personal history of transient ischemic attack (TIA), and cerebral infarction without residual deficits; F17.200 Nicotine dependence, unspecified, uncomplicated; Z90.89 Acquired absence of other organs; Z90.49 Acquired absence of other specified parts of digestive tract; Z90.721 Acquired absence of ovaries, unilateral; Z90.710 Acquired absence of both cervix and uterus
CPT/HCPCS: 36415; 70450; 70551; 71045; 80047; 80048; 81003; 82040; 84484; 85025; 96374; 96375; 99284; J0780; J1200; J2060

== ENCOUNTER 2019-07-31 20:11 | Emergency (ER) | payer MEDICAID ==
[~2019-07-31] VITALS: Ht 172.7 cm; Wt 109.0 kg
[~2019-07-31 20:11] MED LIST changes: +FLUO20CA19 PO; +LOSA25TA25 PO; +OMEP40CA42 PO; -OMEP40CA6 PO
[2019-07-31 20:18] VITALS: BP 124/68
--- NOTE | 2019-07-31 20:30 | NUR ---
DIZZINESS FOLLOWED BY A SYNCOPAL EPSIOPE. STABBING PAIN, INTERMITTANT ON THE LEFT SIDE OF THE CHEST. DENIES N/V, ABD PAIN.
--- NOTE | 2019-07-31 20:33 | NUR ---
ER MD VAZQUEZ IN TO ASSESS PT
[2019-07-31 20:53] LABS: BASOPHILS # (AUTO) 0.05 x10^3/uL (0-0.1); BASOPHILS % (AUTO) 1 % (0-1); EOSINOPHILS # (AUTO) 0.22 x10^3/uL (0-0.4); EOSINOPHILS % (AUTO) 2 % (1-7); LYMPHOCYTES % (AUTO) 24 % (22-44); MD NO; MEAN CORPUSCULAR HGB CONC 32.2 g/dL (32.4-35.8); MEAN CORPUSCULAR VOLUME 89.9 fL (80-100); MEAN PLATELET VOLUME 7.8 fL (7.4-10.4); MONOCYTES # (AUTO) 0.67 x10^3/uL (0.2-0.8); MONOCYTES % (AUTO) 6 % (2-9); NEUTROPHILS # (AUTO) 7.05 x10^3/uL (1.8-6.8); NEUTROPHILS % (AUTO) 67 % (42-75); PLATELET COUNT 304 x10^3/uL (130-400); RED BLOOD COUNT 5.14 x10^6/uL (3.82-5.3); RED CELL DISTRIBUTION WIDTH 15.2 % (9.6-15.2)
[2019-07-31 21:04] LABS: ALANINE AMINOTRANSFERASE 29 U/L (12-78); ALBUMIN 3.5 g/dL (3.4-5.0); ANION GAP 7 mmol/L (5-15); CALCIUM 8.4 mg/dL (8.5-10.1); CHLORIDE 107 mmol/L (98-107); CREATININE 0.79 mg/dL (0.55-1.02)
[2019-07-31 21:09] LABS: ALKALINE PHOSPHATASE 79 U/L (45-117); BILIRUBIN,TOTAL 0.2 mg/dL (0.2-1.0); TOTAL PROTEIN 7.6 g/dL (6.4-8.2); TROPONIN I < 0.015 ng/mL (0.000-0.045)
[2019-07-31] MEDS ORDERED: KETOROLAC 30 MG/1 ML ONE (21:56)
[2019-07-31] MEDS ORDERED: KETOROLAC 30 MG/1 ML IVPush ONE (22:00)
== END 2019-07-31 22:09 | disposition home or self-care (01) ==
LOC: ED 21:24
DX: R07.89 Other chest pain (principal); F17.200 Nicotine dependence, unspecified, uncomplicated; G43.909 Migraine, unspecified, not intractable, without status migrainosus; I10 Essential (primary) hypertension; J45.909 Unspecified asthma, uncomplicated; E11.9 Type 2 diabetes mellitus without complications; Z90.49 Acquired absence of other specified parts of digestive tract; Z90.710 Acquired absence of both cervix and uterus; Z86.73 Personal history of transient ischemic attack (TIA), and cerebral infarction without residual deficits
CPT/HCPCS: 36415; 71045; 80053; 83880; 84484; 85025; 85379; 93005; 96374; 99284; J1885

== ENCOUNTER 2020-04-30 19:31 | Emergency (ER) | payer MEDICAID ==
[~2020-04-30] VITALS: Ht 172.7 cm; Wt 119.6 kg
[2020-04-30 21:34] VITALS: BP 121/74
--- NOTE | 2020-04-30 21:36 | NUR ---
VITALS RECHECKED, PT AWAITING ROOM AVAILABILITY
[2020-05-01] MEDS ORDERED: KETOROLAC 30 MG/1 ML IM ONE
[2020-05-01] MEDS ORDERED: HYDROcodone/APAP 5/325 TABLET PO ONE
[2020-05-01] MEDS ORDERED: HYDROcodone/APAP 5/325 TABLET ONE (00:04)
[2020-05-01] MEDS ORDERED: KETOROLAC 30 MG/1 ML ONE (00:04)
--- NOTE | 2020-05-01 00:16 | NUR ---
PT MEDICATED PER EMAR AND UNDERSTANDS OBS PERIOD FOLLOWING MEDICATIONS. PT ELECTING TO GO HOME. PT AWARE OF S/S OF RX RXN AND AGREES TO RETURN IF ANY OCCUR. DC EDUCATION PROVIDED, PT DEMONSTRATES UNDERSTANDING. PT USED CRUTCHES STEADILY TO DC DESK WITH SPOUSE. SPOUSE TO DC HOME
== END 2020-05-01 00:19 | disposition home or self-care (01) ==
LOC: ED 23:06
DX: S93.402A Sprain of unspecified ligament of left ankle, initial encounter (principal); M25.562 Pain in left knee; M79.672 Pain in left foot; I47.1 Supraventricular tachycardia; G43.909 Migraine, unspecified, not intractable, without status migrainosus; I10 Essential (primary) hypertension; E11.9 Type 2 diabetes mellitus without complications; Z86.73 Personal history of transient ischemic attack (TIA), and cerebral infarction without residual deficits; X50.1XXA Overexertion from prolonged static or awkward postures, initial encounter; Y93.89 Activity, other specified; Y92.009 Unspecified place in unspecified non-institutional (private) residence as the place of occurrence of the external cause; Y99.8 Other external cause status
CPT/HCPCS: 73564; 73610; 93971; 96372; 99284; J1885

== ENCOUNTER 2020-07-19 23:53 | Observation (INO) | payer MEDICAID ==
[~2020-07-19] VITALS: Ht 172.7 cm; Wt 113.2 kg
[2020-07-20] MEDS ORDERED: ONDANSETRON 2MG/ML, 2ML ONE ×2 (00:11→07:55)
[2020-07-20] MEDS ORDERED: HYDROmorphone 1 MG/ML, 1ML INJ ONE ×4 (00:11→09:43)
--- NOTE | 2020-07-20 00:18 | NUR ---
PT. MEDICATED PER MAR AND REPORTED ALMOST INSTANT RELIEF FROM 9/10 DOWN TO 4/10 PAIN. 2L O2 PLACED FOR DESAT TO 89% AFTER MEDS. PT. AWARE OF POC AND NEED FOR UA.
[2020-07-20] MEDS ORDERED: ONDANSETRON 2MG/ML, 2ML IVPush ONE (00:30)
[2020-07-20] MEDS ORDERED: HYDROmorphone 2 MG/ML, 1ML IVPush PRN ×2 (00:30→05:30)
[2020-07-20] MEDS ORDERED: HYDROmorphone 1 MG/ML, 1ML INJ IVPush PRN ×2 (00:30→09:30)
[2020-07-20 00:53] LABS: BASOPHILS % (AUTO) 1 % (0-1); EOSINOPHILS % (AUTO) 2 % (1-7); LYMPHOCYTES % (AUTO) 14 % (22-44); MEAN CORPUSCULAR HEMOGLOBIN 29.1 pg (27.0-34.8); MEAN CORPUSCULAR HGB CONC 33.3 g/dL (32.4-35.8); MEAN PLATELET VOLUME 7.7 fL (7.4-10.4); MONOCYTES % (AUTO) 6 % (2-9); NEUTROPHILS % (AUTO) 78 % (42-75); PLATELET COUNT 273 x10^3/uL (130-400); RED BLOOD COUNT 4.99 x10^6/uL (3.82-5.3); RED CELL DISTRIBUTION WIDTH 15.5 % (9.6-15.2)
[2020-07-20 00:59] LABS: MD NO
[2020-07-20 01:05] LABS: ALBUMIN 3.2 g/dL (3.4-5.0); ANION GAP 5 mmol/L (5-15); CALCIUM 8.6 mg/dL (8.5-10.1); CHLORIDE 108 mmol/L (98-107); CREATININE 0.66 mg/dL (0.55-1.02)
[2020-07-20 01:08] LABS: ALKALINE PHOSPHATASE 73 U/L (45-117); BILIRUBIN,TOTAL 0.3 mg/dL (0.2-1.0); TOTAL PROTEIN 7.3 g/dL (6.4-8.2)
[2020-07-20 01:23] LABS: ALANINE AMINOTRANSFERASE 24 U/L (12-78)
--- NOTE | 2020-07-20 01:37 | NUR ---
Irving RN: JESUS collected and sent.
[2020-07-20 01:44] LABS: MICROSCOPIC NOT IND
--- NOTE | 2020-07-20 01:46 | NUR ---
Irving RN: Pt in CT via geovany.
[2020-07-20] MEDS ORDERED: SODIUM CHLORIDE 0.9% 1,000ML IVBOLUS ONE (02:30)
--- NOTE | 2020-07-20 03:15 | NUR ---
PT. RESTING ON GURNEY WITH EYES CLOSED. NO DISTRESS NOTED. RESPIRATIONS EVEN, NON-LABORED. AWAITING US.
[2020-07-20] MEDS ORDERED: OMNIPAQUE 350 MG/ML, 100ML BOTTLE ONE (03:28)
--- NOTE | 2020-07-20 04:06 | NUR ---
PT. OUT OF ROOM FOR US.
--- NOTE | 2020-07-20 04:53 | NUR ---
PT. WITH INCREASED PAIN AT THIS TIME. PT. WITH GUARDED BODY LANGUAGE AND GRIMACING. DR. SMITH IN TO DISCUSS ED FINDINGS WITH PT. AND POC.
--- NOTE | 2020-07-20 04:59 | NUR ---
PT. MEDICATED PER DR. SMITH BS VERBAL ORDER FOR 1MG DILUADID.
--- NOTE | 2020-07-20 05:00 | NUR ---
PT. REQUESTING TO USE BR BUT REPORTS TOO MUCH PAIN TO GET UP AT THIS TIME. PURWIC PLACED. REMAINS AT BS FOR SUPPORT.
--- NOTE | 2020-07-20 05:35 | NUR ---
PT. UNABLE TO VOID VIA PURWIC; REPORTS PAIN IS GONE AT THIS TIME AND REQUESTING TO AMBULATE TO BR. ACCOMPANIED PT. FOR SAFETY TO BR.
[2020-07-20] MEDS ORDERED: HYDROmorphone 1 MG/ML, 1ML INJ IV ONE (06:30)
[2020-07-20 06:55] VITALS: BP 111/63
[2020-07-20] MEDS ORDERED: SODIUM CHLORIDE 0.9% 1,000 ML IV SCH (07:00)
--- NOTE | 2020-07-20 07:04 | NUR ---
REPORT FROM NIKIA GAVIRIA
[2020-07-20] MEDS ORDERED: MIDAZOLAM 1 MG/ML, 2ML ONE (07:19)
--- NOTE | 2020-07-20 07:22 | NUR ---
REPORT GIVEN TO NIKIA HERRMANN
[2020-07-20] MEDS ORDERED: BUPIVACAINE/PF 0.25% ONE (07:32)
[2020-07-20] MEDS ORDERED: EPINEPHRINE 1 MG/ML, 1ML ONE (07:32)
[2020-07-20] MEDS ORDERED: CHLORHEXIDINE 15 ML UDC ONE (07:44)
[2020-07-20] MEDS ORDERED: CEFAZOLIN 1,000 MG ONE (07:55)
[2020-07-20] MEDS ORDERED: PROPOFOL 10 MG/ML, 20ML ONE (07:55)
[2020-07-20] MEDS ORDERED: SUGAMMADEX 200 MG/2 ML IVPush ONE (07:55)
[2020-07-20] MEDS ORDERED: DEXAMETHASONE 4 MG/ML, 1ML ONE (07:55)
[2020-07-20] MEDS ORDERED: SUCCINYLCHOLINE 20 MG/ML, 10ML ONE (07:55)
[2020-07-20] MEDS ORDERED: ROCURONIUM 10 MG/ML,10ML ONE (07:55)
[2020-07-20] MEDS ORDERED: FENTANYL PF 250 MCG/5ML ONE (08:26)
[2020-07-20] MEDS ORDERED: hydrALAzine 20 MG/ML, 1ML IV PRN (09:30)
[2020-07-20] MEDS ORDERED: PROMETHAZINE 25 MG/ML, 1ML IVPush PRN (09:30)
[2020-07-20] MEDS ORDERED: OXYcodone 5 MG/5 ML ORAL.SOL UDC PO PRN (09:30)
[2020-07-20] MEDS ORDERED: ONDANSETRON 2MG/ML, 2ML IVPush PRN (09:30)
[2020-07-20] MEDS ORDERED: DIAZEPAM 5 MG/ML, 2ML IVPush PRN (09:30)
[2020-07-20] MEDS ORDERED: ACETAMINOPHEN 325 MG TABLET PO PRN (09:30)
[2020-07-20] MEDS ORDERED: LABETALOL 5MG/ML, 20ML IV PRN (09:30)
[2020-07-20] MEDS ORDERED: MEPERIDINE/PF 25MG/0.5ML IVPush PRN (09:30)
[2020-07-20] MEDS ORDERED: DIPHENHYDRAMINE 50 MG/ML, 1ML IVPush PRN (09:30)
[2020-07-20] MEDS ORDERED: FENTANYL PF 100 MCG/2ML ONE (09:43)
[2020-07-20] MEDS ORDERED: OXYcodone 5 MG/5 ML ORAL.SOL UDC ONE (09:43)
[2020-07-20] MEDS ORDERED: KETOROLAC 30 MG/1 ML ONE (09:48)
[2020-07-20] MEDS: FENTANYL PF 100 MCG/2ML IV PRN ×4 (09:52→10:22)
[2020-07-20] MEDS ORDERED: KETOROLAC 30 MG/1 ML IVPush ONE (10:30)
== END 2020-07-20 12:00 | disposition home or self-care (01) ==
LOC: ED 07-20 01:05 → ORIP 07-20 09:30
PROVIDERS: ADMIT Obstetrics & Gynecology; ATTEND Obstetrics & Gynecology
DX: N83.201 Unspecified ovarian cyst, right side (principal); Z20.828 Contact with and (suspected) exposure to other viral communicable diseases; K66.0 Peritoneal adhesions (postprocedural) (postinfection); E11.9 Type 2 diabetes mellitus without complications; I10 Essential (primary) hypertension; J45.909 Unspecified asthma, uncomplicated; G43.909 Migraine, unspecified, not intractable, without status migrainosus; E78.5 Hyperlipidemia, unspecified; F17.200 Nicotine dependence, unspecified, uncomplicated; E66.9 Obesity, unspecified; Z90.710 Acquired absence of both cervix and uterus; Z90.721 Acquired absence of ovaries, unilateral; Z79.899 Other long term (current) drug therapy; Z86.73 Personal history of transient ischemic attack (TIA), and cerebral infarction without residual deficits
CPT/HCPCS: 36415; 58661; 58662; 74177; 76830; 80053; 81003; 82962; 83690; 85025; 87635; 88305; 96361; 96374; 96375; 96376; 99291; G0378; J0171; J0330; J0690; J1100; J1170; J1885; J2250; J2405; J2704; J3010; J7030; Q9967; 99285

== ENCOUNTER 2020-10-10 20:52 | Emergency (ER) | payer MEDICAID ==
[~2020-10-10] VITALS: Ht 172.7 cm; Wt 120.9 kg
--- NOTE | 2020-10-10 21:09 | NUR ---
Pt arrived to room 34. Assumed care. Pt reports she starting having increased SOB and cough- she has a chronic cough, hx post-nasal, diabetesII, wears CPAP at night. Pt reports she stopped smoking yesterday as well. Pt reports she is currently taking antibiotics for UTI and has had diarrhea since she started taking antbx. Hooked up to monitor, sats 94%RA.
--- NOTE | 2020-10-10 21:54 | NUR ---
XR at bedside
[2020-10-10 22:17] LABS: BASOPHILS % (AUTO) 1 % (0-1); EOSINOPHILS % (AUTO) 4 % (1-7); LYMPHOCYTES % (AUTO) 23 % (22-44); MD NO; MEAN CORPUSCULAR HEMOGLOBIN 29.5 pg (27.0-34.8); MEAN CORPUSCULAR HGB CONC 33.5 g/dL (32.4-35.8); MEAN PLATELET VOLUME 7.8 fL (7.4-10.4); MONOCYTES % (AUTO) 6 % (2-9); NEUTROPHILS % (AUTO) 67 % (42-75); PLATELET COUNT 244 x10^3/uL (130-400); RED BLOOD COUNT 4.65 x10^6/uL (3.82-5.3); RED CELL DISTRIBUTION WIDTH 15.2 % (9.6-15.2)
[2020-10-10 22:24] LABS: ANION GAP 8 mmol/L (5-15); CALCIUM 8.4 mg/dL (8.5-10.1); CHLORIDE 111 mmol/L (98-107); CREATININE 0.82 mg/dL (0.55-1.02)
--- NOTE | 2020-10-10 22:43 | NUR ---
TASK RN: PT SITTING UP IN [facility]. FREQUENT COUGH NOTED. SPEAKING IN FULL SENTENCES, SPO2 89-93% ON RA. RR WNL. PT AMBULATED STEADILY TO RESTROOM WO C/O WORSENING DYSPNEA OR CHEST PAIN. PT UPDATED TO POC (RESULTS/RECHECK) AND DEMONSTRATE UNDERSTANDING.
[2020-10-10] MEDS ORDERED: ALBUTEROL/IPRATROPIUM 2.5MG/0.5MG, 3 ML ONE (22:49)
--- NOTE | 2020-10-10 22:52 | NUR ---
TASK RN: BREATHING TX INITIATED. MEDICATION REQUESTED FROM PHARMACY
[2020-10-10] MEDS ORDERED: PROMETHAZINE/COD. 10MG/6.25MG/5 ML ORAL SOL PO ONE (23:00)
[2020-10-10] MEDS ORDERED: ALBUTEROL/IPRATROPIUM 2.5MG/0.5MG, 3 ML NEB ONE (23:00)
--- NOTE | 2020-10-10 23:08 | NUR ---
Breathing treatment complete. Medicated per eMAR- med was picked up from pharmacy.
[2020-10-10 23:10] VITALS: BP 149/74
--- NOTE | 2020-10-10 23:10 | NUR ---
COVID swab collected and walked to lab.
--- NOTE | 2020-10-10 23:17 | NUR ---
Pt confirms she is not driving home, her is waiting outside to drive her home.
== END 2020-10-10 23:17 | disposition home or self-care (01) ==
LOC: ED 23:00
DX: R05 Cough (principal); Z20.822 Contact with and (suspected) exposure to COVID-19; J02.9 Acute pharyngitis, unspecified; R11.0 Nausea; R19.7 Diarrhea, unspecified; R00.0 Tachycardia, unspecified; I10 Essential (primary) hypertension; E11.9 Type 2 diabetes mellitus without complications; E78.5 Hyperlipidemia, unspecified; G43.909 Migraine, unspecified, not intractable, without status migrainosus; Z90.49 Acquired absence of other specified parts of digestive tract; Z90.710 Acquired absence of both cervix and uterus; Z90.89 Acquired absence of other organs; Z87.891 Personal history of nicotine dependence; Z90.721 Acquired absence of ovaries, unilateral
CPT/HCPCS: 36415; 71045; 80048; 85025; 93005; 94640; 99285; U0003; 99284

== ENCOUNTER 2020-10-16 16:11 | Emergency (ER) | payer MEDICAID ==
[~2020-10-16] VITALS: Ht 172.7 cm; Wt 118.2 kg
--- NOTE | 2020-10-16 16:41 | NUR ---
PT TO ROOM 36 W/ C/O SOB, COUGH, CHILLS, SWEATING, ZHAO, SORE THORAT, BODY ACHES, FATIGUE. WAS IN CLOSE CONTACT W/ PERSON WHO CAME BACK COVID POSITIVE 3 DAYS AGO. SX STARTED 8 DAYS AGO. PT RESTING ON [place]. MONITORS APPLIED. KELLY. VSS.
[2020-10-16 16:46] VITALS: BP 133/55
== END 2020-10-16 17:57 | disposition home or self-care (01) ==
LOC: ED 17:38
DX: B34.9 Viral infection, unspecified (principal); R11.2 Nausea with vomiting, unspecified; I21.9 Acute myocardial infarction, unspecified; I10 Essential (primary) hypertension; E11.9 Type 2 diabetes mellitus without complications; E78.5 Hyperlipidemia, unspecified; J45.909 Unspecified asthma, uncomplicated; F17.210 Nicotine dependence, cigarettes, uncomplicated; Z86.73 Personal history of transient ischemic attack (TIA), and cerebral infarction without residual deficits; Z90.49 Acquired absence of other specified parts of digestive tract; Z90.710 Acquired absence of both cervix and uterus
CPT/HCPCS: 93005; 99283; 99406

== ENCOUNTER 2020-12-15 13:29 | Emergency (ER) | payer MEDICAID ==
[~2020-12-15] VITALS: Ht 170.2 cm; Wt 120.0 kg
[2020-12-15 13:44] VITALS: BP 115/74
--- NOTE | 2020-12-15 14:09 | NUR ---
CONTACT WITH PT. 50 YR OLD FEMALE HERE WITH C/O L WRIST/FOREARM, LEFT KNEE AND LEFT ANKLE PAIN/SWELLING AFTER A MGLF, TRIP ON PLASTIC BAGS. NIDIA GAMEZ AT BEDSIDE TO LIBBY PT.
[2020-12-15] MEDS ORDERED: IBUPROFEN 600 MG TABLET ONE (14:19)
--- NOTE | 2020-12-15 14:20 | NUR ---
ATTEMPT TO MEDICATE PT, NOT IN ROOM
[2020-12-15] MEDS ORDERED: IBUPROFEN 600 MG TABLET PO ONE (14:30)
--- NOTE | 2020-12-15 14:41 | NUR ---
PT MEDICATED ORDERED. ICE APPLIED. WAITING FOR XRAY RESULTS.
== END 2020-12-15 15:27 | disposition home or self-care (01) ==
LOC: ED 15:21
DX: S63.522A Sprain of radiocarpal joint of left wrist, initial encounter (principal); S93.492A Sprain of other ligament of left ankle, initial encounter; S60.222A Contusion of left hand, initial encounter; S80.02XA Contusion of left knee, initial encounter; F17.210 Nicotine dependence, cigarettes, uncomplicated; Z90.89 Acquired absence of other organs; Z90.49 Acquired absence of other specified parts of digestive tract; I10 Essential (primary) hypertension; E11.9 Type 2 diabetes mellitus without complications; G43.909 Migraine, unspecified, not intractable, without status migrainosus; Z86.718 Personal history of other venous thrombosis and embolism; Z90.710 Acquired absence of both cervix and uterus; W01.0XXA Fall on same level from slipping, tripping and stumbling without subsequent striking against object, initial encounter; Y93.89 Activity, other specified; Y92.009 Unspecified place in unspecified non-institutional (private) residence as the place of occurrence of the external cause; Y99.8 Other external cause status
CPT/HCPCS: 29125; 99284

== ENCOUNTER 2020-12-24 20:25 | Emergency (ER) | payer MEDICAID ==
[~2020-12-24] VITALS: Ht 172.7 cm; Wt 122.4 kg
[2020-12-24 20:30] VITALS: BP 121/73
[2020-12-24] MEDS ORDERED: PROCHLORPERAZINE 5 MG/ML, 2ML ONE (21:20)
[2020-12-24] MEDS ORDERED: KETOROLAC 30 MG/1 ML ONE (21:20)
[2020-12-24] MEDS ORDERED: DIPHENHYDRAMINE 50 MG/ML, 1ML ONE (21:20)
[2020-12-24] MEDS ORDERED: SUMATRIPTAN 6MG/0.5ML SQ ONE ×2 (21:22→21:30)
[2020-12-24] MEDS ORDERED: SODIUM CHLORIDE FLUSH 10ML SYR IVF ONE (21:30)
[2020-12-24] MEDS ORDERED: DIPHENHYDRAMINE 50 MG/ML, 1ML IVPush ONE (21:30)
[2020-12-24] MEDS ORDERED: SODIUM CHLORIDE 0.9% 1,000ML IVBOLUS ONE (21:30)
[2020-12-24] MEDS ORDERED: KETOROLAC 30 MG/1 ML IVPush ONE (21:30)
[2020-12-24] MEDS ORDERED: PROCHLORPERAZINE 5 MG/ML, 2ML IVPush ONE (21:30)
[2020-12-24] MEDS ORDERED: ALBUTEROL/IPRATROPIUM 2.5MG/0.5MG, 3 ML ONE (22:26)
== END 2020-12-24 22:40 | disposition home or self-care (01) ==
LOC: ED 20:55
DX: G43.009 Migraine without aura, not intractable, without status migrainosus (principal); I10 Essential (primary) hypertension; E11.9 Type 2 diabetes mellitus without complications; E78.5 Hyperlipidemia, unspecified; J45.909 Unspecified asthma, uncomplicated; F17.200 Nicotine dependence, unspecified, uncomplicated; Z86.73 Personal history of transient ischemic attack (TIA), and cerebral infarction without residual deficits; Z90.49 Acquired absence of other specified parts of digestive tract
CPT/HCPCS: 93005; 96361; 96372; 96374; 96375; 99284; J0780; J1200; J1885; J3030; J7030

== ENCOUNTER 2021-01-11 20:42 | Emergency (ER) | payer MEDICAID ==
[~2021-01-11] VITALS: Ht 172.7 cm; Wt 120.6 kg
[~2021-01-11 20:42] MED LIST changes: -OMEP40CA42 PO; +OMEP40CA8 PO
[2021-01-11 21:16] LABS: BASOPHILS % (AUTO) 1 % (0-1); EOSINOPHILS % (AUTO) 2 % (1-7); LYMPHOCYTES % (AUTO) 26 % (22-44); MEAN CORPUSCULAR HEMOGLOBIN 29.1 pg (27.0-34.8); MEAN CORPUSCULAR HGB CONC 33.1 g/dL (32.4-35.8); MEAN PLATELET VOLUME 7.5 fL (7.4-10.4); MONOCYTES % (AUTO) 6 % (2-9); NEUTROPHILS % (AUTO) 66 % (42-75); PLATELET COUNT 357 x10^3/uL (130-400); RED CELL DISTRIBUTION WIDTH 15.4 % (9.6-15.2)
[2021-01-11 21:24] LABS: ALBUMIN 3.4 g/dL (3.4-5.0); ANION GAP 8 mmol/L (5-15); CALCIUM 8.7 mg/dL (8.5-10.1); CHLORIDE 109 mmol/L (98-107); CREATININE 0.76 mg/dL (0.55-1.02)
[2021-01-11 21:28] LABS: TROPONIN I < 0.015 ng/mL (0.000-0.045)
[2021-01-11 21:39] VITALS: BP 122/69
== END 2021-01-11 22:54 | disposition home or self-care (01) ==
LOC: ED 21:33
DX: R06.00 Dyspnea, unspecified (principal); R05 Cough; R07.9 Chest pain, unspecified; I10 Essential (primary) hypertension; E11.9 Type 2 diabetes mellitus without complications; G43.909 Migraine, unspecified, not intractable, without status migrainosus; E78.5 Hyperlipidemia, unspecified; F17.200 Nicotine dependence, unspecified, uncomplicated; Z86.73 Personal history of transient ischemic attack (TIA), and cerebral infarction without residual deficits; Z90.49 Acquired absence of other specified parts of digestive tract; Z90.710 Acquired absence of both cervix and uterus; Z90.89 Acquired absence of other organs; Z90.721 Acquired absence of ovaries, unilateral
CPT/HCPCS: 36415; 71045; 80048; 82040; 84484; 85025; 93005; 99285

== ENCOUNTER 2021-04-14 22:13 | Emergency (ER) | payer MEDICAID ==
[~2021-04-14] VITALS: Ht 172.7 cm; Wt 115.8 kg
[2021-04-14 22:15] VITALS: BP 150/88
[2021-04-15] MEDS ORDERED: CEPHALEXIN 500 MG CAPSULE PO ONE
[2021-04-15] MEDS ORDERED: CEPHALEXIN 500 MG CAPSULE ONE (00:12)
== END 2021-04-15 00:42 | disposition home or self-care (01) ==
LOC: ED 23:59
DX: S40.862A Insect bite (nonvenomous) of left upper arm, initial encounter (principal); S50.362A Insect bite (nonvenomous) of left elbow, initial encounter; L03.112 Cellulitis of left axilla; I10 Essential (primary) hypertension; E11.9 Type 2 diabetes mellitus without complications; J45.909 Unspecified asthma, uncomplicated; W57.XXXA Bitten or stung by nonvenomous insect and other nonvenomous arthropods, initial encounter; Y93.89 Activity, other specified; Y92.239 Unspecified place in hospital as the place of occurrence of the external cause; Y99.8 Other external cause status
CPT/HCPCS: 99283